=== PATIENT | female | born 1960 | race Hispanic/Latino ===

== ENCOUNTER 2018-06-19 22:07 | Emergency (ER) | payer MEDICARE ==
[2018-06-19 23:10] LABS: Basophils % (Auto) 0.6 % (0.0-1.8); Eosinophils % (Auto) 0.1 % (0.0-4.3); Hematocrit 36.8 % (30.3-42.9); Hemoglobin 11.9 gm/dl (10.1-14.3); Lymphocytes # (Auto) 0.7 K/mm3 (1.2-5.4); Lymphocytes % (Auto) 10.9 % (13.4-35.0); Mean Corpuscular HGB Conc 32 % (30-34); Mean Corpuscular Hemoglobin 28 pg (28-32); Mean Corpuscular Volume 85 fl (79-97); Monocytes # (Auto) 0.1 K/mm3 (0.0-0.8); Monocytes % (Auto) 1.7 % (0.0-7.3); Platelet Count 277 K/mm3 (140-440); Red Blood Count 4.32 M/mm3 (3.65-5.03); Red Cell Distribution Width 16.7 % (13.2-15.2)
[2018-06-19] MEDS ORDERED: ZOFRAN IV ONE (23:28)
[2018-06-19] MEDS ORDERED: DILAUDID IV ONE (23:28)
--- NOTE | 2018-06-19 23:33 | Emergency Department Report ---
ED Chest Pain HPI - General Chief Complaint: Chest Pain Stated Complaint: CHEST PAIN Time Seen by Provider: 06/19/18 22:58 Source: patient Mode of arrival: Ambulatory Limitations: No Limitations - History of Present Illness Initial Comments: Patient is 57 years old female with history of rheumatoid arthritis and significant back and neck fusion surgery. Patient presented to the ER for evaluation of possible pulmonary embolism. Patient was sent by her primary care physician after she started complaining of a left-sided chest pain, sharp in nature with no radiation associated with shortness of breath and taking a deep breath. Patient denied any fever or cough. Patient also denied any nausea vomiting. MD Complaint: chest pain -: This morning Onset: during rest Pain Location: left chest Severity: moderate Severity scale (0 -10): 6 Quality: sharp Consistency: intermittent - Related Data Home Medications Medication Instructions Recorded Confirmed Last Taken Hydrocodone Bit/Acetaminophen 1 tab PO PRN PRN 08/29/13 06/20/18 09/04/13 [Lortab 5-500 Tablet] buPROPion [Wellbutrin] 300 mg PO DAILY 08/29/13 06/20/18 09/04/13 ALPRAZolam [Xanax TAB] 0.25 mg PO QHS PRN 06/20/18 06/20/18 Unknown Lubiprostone (Nf) [Amitiza (Nf)] 24 mcg PO DAILY 06/20/18 06/20/18 Unknown Pantoprazole [Protonix TAB] 40 mg PO BID 06/20/18 06/20/18 Unknown Pregabalin [Lyrica] 75 mg PO TID 06/20/18 06/20/18 Unknown Ranitidine HCl [Zantac 150 MG TAB] 150 mg PO DAILY 06/20/18 06/20/18 Unknown Tizanidine HCl [Zanaflex] 2 mg PO DAILY 06/20/18 06/20/18 Unknown Allergies Allergy/AdvReac Type Severity Reaction Status Date / Time Sulfa (Sulfonamide Allergy Severe HEAD & Verified 09/05/13 07:29 Antibiotics) FACE SWELLIGN ciprofloxacin [From Cipro] Allergy Intermediate RASH,ITCHIN Verified 09/05/13 07 :29 G nitrofurantoin Allergy Intermediate RASH,ITCHIN Verified 09/05/13 07:29 macrocrystalline G [From Macrodantin] ciprofloxacin HCl AdvReac Intermediate RASH,ITCHIN Verified 09/05/13 07:29 [From Cipro] G Heart Score - HEART Score History: Slightly suspicious EKG: Non-specific Age: 45-65 Risk factors: 1-2 risk factors Troponin: < normal limit HEART Score: 3 - Critical Actions Critical Actions: 0-3 pts:0.9-1.7%risk of adverse cardiac event.Candidate for discharge ED Review of Systems ROS: Stated complaint: CHEST PAIN Other details as noted in HPI Comment: All other systems reviewed and negative Constitutional: denies: chills, fever Respiratory: shortness of breath. denies: cough, orthopnea, SOB with exertion, SOB at rest, wheezing Cardiovascular: chest pain Gastrointestinal: denies: abdominal pain, nausea, vomiting, diarrhea, constipation, hematemesis, melena, hematochezia Musculoskeletal: denies: back pain Neurological: denies: headache, weakness, numbness, paresthesias, confusion ED Past Medical Hx - Past Medical History Previous Medical History?: Yes Hx Hypertension: No Hx Arthritis: Yes Hx Asthma: No Additional medical history: ulcers diverticulitis, Degentive disc DZ, shingles - Surgical History Past Surgical History?: Yes Additional Surgical History: fusions on neck, and back, - Social History Smoking Status: Never Smoker Substance Use Type: None - Medications Home Medications: Home Medications Medication Instructions Recorded Confirmed Last Taken Type Hydrocodone Bit/Acetaminophen 1 tab PO PRN PRN 08/29/13 06/20/18 09/04/13 History [Lortab 5-500 Tablet] buPROPion [Wellbutrin] 300 mg PO DAILY 08/29/13 06/20/18 09/04/13 History ALPRAZolam [Xanax TAB] 0.25 mg PO QHS PRN 06/20/18 06/20/18 Unknown History Lubiprostone (Nf) [Amitiza (Nf)] 24 mcg PO DAILY 06/20/18 06/20/18 Unknown History Pantoprazole [Protonix TAB] 40 mg PO BID 06/20/18 06/20/18 Unknown History Pregabalin [Lyrica] 75 mg PO TID 06/20/18 06/20/18 Unknown History Ranitidine HCl [Zantac 150 MG TAB] 150 mg PO DAILY 06/20/18 06/20/18 Unknown History Tizanidine HCl [Zanaflex] 2 mg PO DAILY 06/20/18 06/20/18 Unknown History ED Physical Exam - General Limitations: No Limitations General appearance: alert, in no apparent distress - Head Head exam: Present: atraumatic, normocephalic, normal inspection - Eye Eye exam: Present: normal appearance, PERRL - ENT ENT exam: Present: normal exam, normal orophraynx, mucous membranes moist - Respiratory Respiratory exam: Present: normal lung sounds bilaterally. Absent: respiratory distress, wheezes, rales, rhonchi, stridor, accessory muscle use, decreased breath sounds, prolonged expiratory - Cardiovascular Cardiovascular Exam: Present: regular rate, normal rhythm, normal heart sounds - GI/Abdominal GI/Abdominal exam: Present: soft, normal bowel sounds. Absent: distended, tenderness, guarding, rebound, rigid, organomegaly, mass, bruit, pulsatile mass , hernia - Back Exam Back exam: Present: normal inspection, full ROM - Neurological Exam Neurological exam: Present: alert, oriented X3, CN II-XII intact, normal gait, reflexes normal - Skin Skin exam: Present: warm, intact, normal color ED Course Vital Signs 06/19/18 06/20/18 22:32 00:29 Temperature 97.8 F 98.2 F Pulse Rate 76 68 Respiratory 18 14 Rate Blood Pressure 125/68 Blood Pressure 126/56 [Left] O2 Sat by Pulse 96 98 Oximetry ED Medical Decision Making - Lab Data Result diagrams: 06/19/18 22:53 06/19/18 22:53 - EKG Data -: EKG Interpreted by Ks EKG shows normal: sinus rhythm Rate: normal - EKG Data Interpretation: no acute changes - Radiology Data Radiology results: report reviewed CTA chest is negative for pulmonary embolus, aortic dissection or vascular congestion. - Medical Decision Making Patient is 57 years old female with history of rheumatoid arthritis and significant back and neck fusion surgery. Patient presented to the ER for evaluation of possible pulmonary embolism. Patient was sent by her primary care physician after she started complaining of a left-sided chest pain, sharp in nature with no radiation associated with shortness of breath and taking a deep breath. Patient denied any fever or cough. Patient also denied any nausea vomiting. Patient stated that she is feeling much better. Chest pain been completely resolved. CT of the chest is negative for pulmonary embolism, aortic dissection or infiltrate. I advised the patient to follow up with her primary care physician in the next 2-3 days and to return to the ER if her symptoms are not improving. Critical care attestation.: If time is entered above; I have spent that time in minutes in the direct care of this critically ill patient, excluding procedure time. ED Disposition Clinical Impression: Chest pain, Pleurisy Disposition: TO HOME OR SELFCARE Is pt being admited?: No Condition: Stable Instructions: Chest Pain (ED), Pleurisy (ED) Referrals: PRIMARY CARE, [Primary Care Provider] - 3-5 Days
[2018-06-19 23:34] LABS: Alanine Aminotransferase 19 units/L (7-56); Albumin 4.5 g/dL (3.9-5); BUN/Creatinine Ratio 11; Blood Urea Nitrogen 8 mg/dL (7-17); Calcium 9.4 mg/dL (8.4-10.2); Hemolysis Index 4
[2018-06-20 00:29] VITALS: BP 126/56
--- NOTE | 2018-06-20 10:28 | Cat Scan Report ---
FINAL REPORT EXAM: CT ANGIOGRAPHY CHEST HISTORY: chest pain TECHNIQUE: A CT angiogram was performed following the intravenous injection of 100 cc of Omnipaque 350. MIP sagittal, coronal, and rotational reconstructions were reviewed FINDINGS: There is no evidence of pulmonary embolus, aortic dissection, or vascular congestion. The thoracic aorta is normal in caliber. The heart size is normal. Pericardial fluid is not seen. There is no evidence of adenopathy. The lungs are clear. Pleural fluid is not seen. At the thoracic inlet the thyroid gland appears normal. The skeletal structures reveal mild disc degeneration in the dorsal spine. IMPRESSION: No evidence of pulmonary embolus, aortic dissection, or vascular congestion. No acute process in the chest.
== END 2018-06-20 01:11 | disposition home or self-care (01) ==
LOC: ED 22:07
DX: R09.1 Pleurisy (principal); R07.89 Other chest pain; M06.9 Rheumatoid arthritis, unspecified; Z88.2 Allergy status to sulfonamides; Z88.1 Allergy status to other antibiotic agents
CPT/HCPCS: 36415; 71275; 80053; 85025; 93005; 93010; 96374; 96375; 99284; J1170; J2405; Q9967

== ENCOUNTER 2018-09-18 07:51 | Outpatient (CLI) | payer MEDICARE ==
--- NOTE | 2018-09-18 13:59 | Mammography Report ---
BILATERAL DIGITAL SCREENING MAMMOGRAM with CAD: 09/18/18 07:51:00 CLINICAL: Routine screening. COMPARISON:04/05/16 and 03/07/13 FINDINGS: The breasts are heterogeneously dense, which may obscure small masses. No mass, architectural distortion or suspicious calcifications. IMPRESSION: No mammographic evidence of malignancy. BI-RADS CATEGORY: 1 - - Negative RECOMMENDATION: Routine mammographic screening in one year. COMMENT: Patient follow-up letters are generated by our [employer] application.
== END 2018-09-18 07:52 | disposition home or self-care (01) ==
LOC: SPVWC 07:51
PROVIDERS: ATTEND Obstetrics & Gynecology
DX: Z12.31 Encounter for screening mammogram for malignant neoplasm of breast (principal); M19.90 Unspecified osteoarthritis, unspecified site; Z90.89 Acquired absence of other organs; Z90.710 Acquired absence of both cervix and uterus
CPT/HCPCS: 77067